=== PATIENT | male | born 1980 | race African-American/Black ===

== ENCOUNTER 2020-08-10 09:24 | Emergency (ER) | payer SELFPAY, OTHER ==
[~2020-08-10] VITALS: Ht 180.3 cm; Wt 75.7 kg
[2020-08-10] MEDS ORDERED: ALBUTEROL2.5 MG/3 M HHN (09:26)
[2020-08-10 09:30] VITALS: BP 121/101
--- NOTE | 2020-08-10 09:30 | Emergency Room Report ---
History of Present Illness General Chief Complaint: Shortness of breath Source: Patient Present Illness HPI Disclaimer: Please note that this report is being documented using [employer] technology. This can lead to erroneous entry secondary to incorrect interpretation by the dictating instrument. HPI: 39-year-old male with a history of asthma presents for evaluation of shortness of breath prior to booking. He arrives in [facility] custody. Reports a history of asthma and noted shortness of breath and wheezing during his arrest. Denied chest pain, palpitations, nasal congestion, persistent cough, fever, chills, nausea, vomiting. Last use albuterol inhaler several days ago. He no longer has it on him. States his shortness of breath and wheezing have resolved. No recent steroid use. Denies history of intubation or severe asthma exacerbations. Denies recent exposure to sick contacts. PMH: Asthma PSH: Reviewed Allergies: Reviewed Social Hx: Reviewed Allergies: Coded Allergies: No Known Allergies (Unverified , 06/10/15) Nursing Documentation-PMH Past Medical History: No History, Except For Hx Asthma: Yes Review of Systems All Other Systems: negative except mentioned in HPI Physical Exam General: Awake and alert, no acute distress HEENT: NC/AT. Patches of alopecia over the scalp. EOMI. Cardiovascular: RRR. S1 and S2 normal. No murmur appreciated Resp: Normal work of breathing. No cough, wheezing or crackles appreciated Abdomen: Abdomen is soft, nondistended. Nontender Skin: Intact. No abrasions, laceration or rash over the exposed skin MSK: Normal tone and bulk. Moving all extremities. No obvious deformity. Neuro: Awake and alert. Mentating appropriately. Medical Decision Making Diagnostic Impression: Primary Impression: Wheezing ER Course 39-year-old male with history of asthma presents for medical clearance prior to booking complaining of wheezing and shortness of breath prior to arrival. His symptoms have resolved. I find no wheezing or signs of asthma exacerbation on exam. I have written the patient a prescription for albuterol inhaler. He is in the custody of [facility] who state that he will have a full medical evaluation and if he requires albuterol he can be given it at the [facility] medical facility. I do not believe he requires emergent labs or imaging at this time. Otherwise stable and cleared for booking. Disposition: LAW ENFORCEMENT IN CUST Condition: Stable Scripts Albuterol Sulfate* (ALBUTEROL SULFATE HHN*) 2.5 Mg/3 Ml Vial.neb 2.5 MG HHN Q4H PRN for Shortness of Breath, #25 VIAL Prov: Peña Hanks MD 08/10/20 Departure Forms: [facility] Clearance Patient Instructions: Asthma, Adult Additional Instructions: Please follow-up with your primary care doctor in the next 1 to 3 days to discuss this emergency department visit and for reevaluation. If you have any new or worsening symptoms please return to the emergency department for reevaluation. Please note that this report is being documented using [employer] technology. This can lead to erroneous entry secondary to incorrect interpretation by the dictating instrument. Peña Hanks MD Aug 10, 2020 09:30
[2020-08-10 09:33] VITALS: BP 135/78
== END 2020-08-10 09:33 ==
LOC: EMR 09:32
DX: J45.909 Unspecified asthma, uncomplicated (principal)
CPT/HCPCS: 99282